=== PATIENT | female | born 1965 | race Caucasian/White ===

== ENCOUNTER 2021-03-23 07:47 | Day surgery (SDC) | payer OTHER ==
[2021-03-21 10:33] LABS: BASOPHILS % (AUTO) 1 % (0-1); EOSINOPHILS % (AUTO) 2 % (1-7); LYMPHOCYTES % (AUTO) 30 % (22-44); MEAN CORPUSCULAR HEMOGLOBIN 32.9 pg (27.0-34.8); MEAN CORPUSCULAR HGB CONC 34.3 g/dL (32.4-35.8); MEAN PLATELET VOLUME 8.6 fL (7.4-10.4); MONOCYTES % (AUTO) 10 % (2-9); NEUTROPHILS % (AUTO) 58 % (42-75); PLATELET COUNT 254 x10^3/uL (130-400); RED BLOOD COUNT 4.35 x10^6/uL (3.82-5.3); RED CELL DISTRIBUTION WIDTH 13.4 % (9.6-15.2)
[2021-03-21 10:45] LABS: ALANINE AMINOTRANSFERASE 41 U/L (12-78); ALBUMIN 4.2 g/dL (3.4-5.0); ANION GAP 3 mmol/L (5-15); CALCIUM 9.2 mg/dL (8.5-10.1); CHLORIDE 108 mmol/L (98-107); CREATININE 0.76 mg/dL (0.55-1.02); INTERNATIONAL NORMALIZED RATIO 1.04 (0.93-1.1); PROTHROMBIN TIME 11.1 Seconds (9.6-11.5)
[2021-03-21 10:47] LABS: ALKALINE PHOSPHATASE 60 U/L (45-117); BILIRUBIN,TOTAL 0.7 mg/dL (0.2-1.0); TOTAL PROTEIN 7.3 g/dL (6.4-8.2)
[~2021-03-23] VITALS: Ht 172.7 cm; Wt 67.7 kg
[~2021-03-23 07:47] MED LIST: BUPIVACAINE/PF 0.5% ONE; EPINEPHRINE 1 MG/ML, 1ML ONE; LOSA25TA25 PO
[2021-03-23 08:17] VITALS: BP 137/95
[2021-03-23] MEDS ORDERED: CHLORHEXIDINE 15 ML UDC PO ONE (08:30)
[2021-03-23] MEDS ORDERED: LACTATED RINGERS 1,000 ML IV SCH (08:30)
[2021-03-23] MEDS ORDERED: PROPOFOL 50 ML ONE ×2 (09:17→11:11)
[2021-03-23] MEDS ORDERED: FENTANYL PF 250 MCG/5ML ONE (09:17)
[2021-03-23] MEDS ORDERED: MIDAZOLAM 1 MG/ML, 2ML ONE (09:17)
[2021-03-23] MEDS ORDERED: FENTANYL PF 100 MCG/2ML IV PRN (09:30)
[2021-03-23] MEDS ORDERED: DIAZEPAM 5 MG/ML, 2ML IVPush PRN (09:30)
[2021-03-23] MEDS ORDERED: ONDANSETRON 2MG/ML, 2ML IVPush PRN (09:30)
[2021-03-23] MEDS ORDERED: OXYcodone 5 MG/5 ML ORAL.SOL UDC PO PRN (09:30)
[2021-03-23] MEDS ORDERED: ACETAMINOPHEN 325 MG TABLET PO PRN (09:30)
[2021-03-23] MEDS ORDERED: MEPERIDINE/PF 25MG/0.5ML IVPush PRN (09:30)
[2021-03-23] MEDS ORDERED: LABETALOL 5MG/ML, 20ML IV PRN (09:30)
[2021-03-23] MEDS ORDERED: morphine SULFATE 10 MG/ML, 1ML IVPush PRN (09:30)
[2021-03-23] MEDS ORDERED: DIPHENHYDRAMINE 50 MG/ML, 1ML IVPush PRN (09:30)
[2021-03-23] MEDS ORDERED: EPHEDRINE 50 MG/ML, 1ML IM PRN (09:30)
[2021-03-23] MEDS ORDERED: PROMETHAZINE 25 MG/ML, 1ML IVPush PRN (09:30)
[2021-03-23] MEDS ORDERED: EPHEDRINE 50 MG/ML, 1ML IVPush PRN (09:30)
[2021-03-23] MEDS ORDERED: ONDANSETRON 2MG/ML, 2ML ONE (10:29)
[2021-03-23] MEDS ORDERED: DEXAMETHASONE 4 MG/ML, 1ML ONE (10:29)
[2021-03-23] MEDS ORDERED: CEFAZOLIN 1,000 MG ONE (10:30)
[2021-03-23] MEDS ORDERED: PROPOFOL 10 MG/ML, 20ML ONE (10:41)
[2021-03-23] MEDS ORDERED: TRAM1TAB56 PO (12:16)
== END 2021-03-23 14:25 | disposition home or self-care (01) ==
LOC: OUT 07:47 → EDSTATUS 12:00 → OUT 14:25
PROVIDERS: ATTEND Surgery
DX: C43.71 Malignant melanoma of right lower limb, including hip (principal); I10 Essential (primary) hypertension; Z20.822 Contact with and (suspected) exposure to COVID-19; Z79.899 Other long term (current) drug therapy; Z79.01 Long term (current) use of anticoagulants; Z85.828 Personal history of other malignant neoplasm of skin; Z83.3 Family history of diabetes mellitus; Z82.49 Family history of ischemic heart disease and other diseases of the circulatory system
CPT/HCPCS: 11602; 12031; 36415; 38531; 78195; 80053; 85025; 85610; 88307; 88342; 93005; A9541; J0171; J0690; J1100; J2250; J2405; J2704; J3010; J7120; U0003; U0005